=== PATIENT | male | born 1985 | race Caucasian/White ===

== ENCOUNTER 2016-07-11 06:33 | Emergency (ER) | payer SELFPAY ==
[2016-07-11] MEDS ORDERED: LIDOCAINE PATCH 5% TOP STA (07:25)
[2016-07-11] MEDS ORDERED: DEXAMETHASONE 10 MG/ML VIAL PO STA (07:25)
[2016-07-11] MEDS ORDERED: oxyCOD/ACETAMIN 5 MG/325 MG TABLET PO STA (07:26)
[2016-07-11] MEDS ORDERED: oxyCOD/ACETAMIN 5 MG/325 MG TABLET PO ONE (07:30)
[2016-07-11] MEDS ORDERED: LIDOCAINE PATCH 5% TOP ONE (07:30)
[2016-07-11] MEDS ORDERED: DEXAMETHASONE 10 MG/ML VIAL ONE (07:30)
[2016-07-11] MEDS ORDERED: CHERRY SYRUP 10 ML UDC PO ONE (07:30)
== END 2016-07-11 08:21 | disposition home or self-care (01) ==
DX: M54.41 Lumbago with sciatica, right side (principal); Q05.7 Lumbar spina bifida without hydrocephalus; M41.9 Scoliosis, unspecified; Z98.1 Arthrodesis status; F17.200 Nicotine dependence, unspecified, uncomplicated
CPT/HCPCS: 99283; A9270